=== PATIENT | female | born 1960 | race Caucasian/White ===

== ENCOUNTER → 2017-02-21 | Outpatient (CLI) | payer OTHER ==
[~2017-02-21] MED LIST: ASPIRIN81 MG PO; LIPITOR80 MG PO; NICOTINE T1 PATCH .2 TOP; NORVASC PO; PROTONIX PO; SYNTHROID PO; ZYRTEC PO
--- NOTE | ~2017-02-21 | US38 ---
[facility] A Service of [facility] / [facility] RADIOLOGY TEXT RESULTS PATIENT: JUANJOSE JOSHI LOCATION: CNIV : 56 UNIT #: [id number] AGE: [address]: RITIKA FRAZIER APRN SEX: F ORDER DR: [id number] [facility] [address] [place], [place] [address] [id number] O MR#: [id number] Acc #: [id number] NAME: JUANJOSE JOSHI : 1960 SEX: F STUDY DATE/TIME: 02/21/2017 10:57 UNIT: CNIV ROOM: STUDY DESCRIPTION: US Carotid W/Doppler Unilatera Attending Physician: Ritika Frazier Aprn Referring Physician: Ritika Frazier Aprn Ordering Physician: Ritika Frazier Aprn Primary Care Physician: Clifford Lane M.D. MEDICAL IMAGING REPORT This report is preliminary unless electronic signature is present EXAM Right carotid duplex scan. DATE OF EXAMINATION 02/21/2017 HISTORY Recent right carotid endarterectomy. FINDINGS The right common carotid artery is patent with minimal plaque. The right internal and external carotid arteries are patent without plaque. Peak systolic velocity in the distal right internal carotid artery is 108 cm/sec with an end-diastolic velocity of 36 cm/sec. The ICA/CCA ratio on the right is 1.63. Peak systolic velocity in the right external carotid artery is 76 cm/sec. The right vertebral artery is patent with antegrade flow. IMPRESSION Normal examination of the right internal and external carotid artery. Patent right vertebral artery with antegrade flow. Dictated by... Cecilio Tsai M.D. THIS IS AN ELECTRONICALLY VERIFIED REPORT Cecilio Tsai M.D. at 02/22/2017 7:42 AM TREY/ligia TD: 02/21/2017 14:04 [facility] A Service of [facility] / [facility] RADIOLOGY TEXT RESULTS PATIENT: JUANJOSE JOSHI LOCATION: CNIV : 56 UNIT #: [id number] AGE: [address]: RITIKA FRAZIER APRN SEX: F ORDER DR: JOB #: [id number] MEDICAL IMAGING REPORT Page 1 of 1 COPY
== END | disposition home or self-care (01) ==
LOC: CNIV 10:13
DX: I65.21 Occlusion and stenosis of right carotid artery (principal); I63.9 Cerebral infarction, unspecified
CPT/HCPCS: 93882